=== PATIENT | female | born 1990 | race Caucasian/White ===

== ENCOUNTER 2017-12-13 07:47 | Inpatient (IN) ==
[2017-12-13] MEDS ORDERED: Citric Acid/Sodium Citrate Liq 30 ML UDC PO SCH (08:15)
[2017-12-13] MEDS ORDERED: Clindamycin 600 mg/NS Premix 600 MG/50 ML PIGGYBACK IV.SIG SCH (08:30)
[2017-12-13] MEDS ORDERED: GENTAMICIN IV.SIG SCH (08:30)
[2017-12-13] MEDS ORDERED: SODIUM CHLOR 0.9% IV.SIG SCH (08:30)
--- NOTE | 2017-12-13 08:37 | P.HPOB ---
History of Present Illness Service: Obstetrics Primary Care Physician: No Primary Care Physician Chief Complaint: leakage of fluid History of Present Illness: 27 yo [id number] with EDC 12/23/17 presents to L&D for c/o leakage of fluid, rules in for SROM. Has h/o x 2, is scheduled for repeat and tubal ligation with Dr. Hernandez next week. Pt's history is significant for hepatitis C positive, history of drug abuse, per note review from Dr. Hernandez clean since Apr 2016 then 9 months in [facility]. Also anemic, last Hgb 9.9. Weeks Gestation:: 38 Para: 2 : 3 Last menstrual period: 03/18/17 Total # of Miscarriage(s): 0 Total # of Abortions (Spontaneous & Elective): 0 - Inpatient Certification I certify that the inpatient services were ordered in accordance with Medicare regulations governing the order. This includes certification that hospital inpatient services are reasonable and necessary and in the case of services not specified as inpatient-only under 42 CFR 419.22(n), that they are appropriately provided as inpatient services in accordance to with the 2-midnight benchmark under 43 CFR 412.3(e) Estimated Total Length of Stay (Days): 4 Plans for Post Hospital Care: Home Review of Systems All other systems reviewed negative except as stated in HPI PMFSH - Medical History Medical History: Medical History (Last Updated 12/13/17 @ 08:26 by Concepcion Lund MD) Hepatitis C - Surgical History Surgical History: Surgical History (Last Updated 12/13/17 @ 08:26 by Concepcion Lund MD) History of delivery - Family History Family History: Family History (Last Updated 12/13/17 @ 08:27 by Concepcion Lund MD) Other No significant family history - Social History I have reviewed the patient's Social History: Yes - Tobacco History Second Hand Smoke Exposure: Yes Tobacco Use In Past 30 Days: Yes Smoking Status: Current every day smoker Tobacco Type: Cigarettes - Travel History Recent Travel in the [place] Within the Last 8 Weeks: No Recent Travel Out of the Country Within the Last 8 Weeks: No Medications and Allergies Active Medications: Active Medications Citric Acid/Sodium Citrate (Sodium Citrate/Citric Acid Liq) 30 ml PO HEAD WOOD GRINDER EVELYN Stop: 12/17/17 08:14 Gentamicin Sulfate 150 mg/ (Sodium Chloride) 103.75 mls @ 100 mls/hr IV.SIG ONCE ONE Stop: 12/13/17 09:32 Lactated Ringer's (Lr 1000 Ml Inj) 1,000 mls @ 2,000 mls/hr IV.SIG .Q30M ONE Stop: 12/13/17 08:41 Lactated Ringer's (Lr 1000 Ml Inj) 1,000 mls @ 150 mls/hr IV.CONT .Q6H40M EVELYN Clindamycin/Sodium Chloride (Cleocin 600 Mg/Ns Premix) 600 mg in 50 mls @ 100 mls/hr IV.SIG ONCE ONE Stop: 12/13/17 08:59 Allergies Allergy/AdvReac Type Severity Reaction Status Date / Time amoxicillin Allergy Mild NAUSEA Verified 12/13/17 08:13 penicillin G Allergy Mild NAUSEA Verified 12/13/17 08:13 Home Medications Medication Instructions Recorded Confirmed Type PNV #[id number] acid-dha 1 cap PO DAILY 12/13/17 12/13/17 History acetaminophen [Tylenol] 650 mg PO Q4H PRN 12/13/17 12/13/17 History Exam Vital signs: Vital Signs 12/13/17 08:09 12/13/17 08:10 12/13/17 08:15 Temperature 98.4 F Pulse Rate 91 H Respiratory Rate 18 Blood Pressure 150/102 H Intake & Output 12/12/17 12/13/17 12/13/17 18:59 06:59 18:59 Weight 98.883 kg Other: Weight On Admission 98.883 kg - Constitutional no acute distress - Routine HEENT Exam Head: Present: normocephalic, atraumatic Eye: Present: EOMI ENT: Present: mucous membranes moist - Routine Neck Exam Present: supple - Routine Chest/Breast/Axilla Exam Chest wall: Absent: tenderness, mass Axillae: Absent: lymphadenopathy, mass - Routine Respiratory Exam Absent: accessory muscle use, decreased breath sounds - Routine Cardiovascular Exam Present: RRR. Absent: bradycardia - Routine Abdominal Exam Absent: guarding Comments: gravid c/w dates - Routine Extremities Exam Absent: cyanosis, clubbing - Routine Skin Exam Present: intact. Absent: erythema - Routine Neurological Exam Present: alert, oriented X3 Caprini VTE Risk Assessment Caprini VTE Risk Assessment: No/Low Risk (score <= 1) VTE Pharmacological Exception Reason: Epidural catheter Caprini Risk Assessment Model: Point Value = 1 Point Value = 2 Point Value = 3 Point Value = 5 Age 41-60 Minor surgery BMI > 25 kg/m2 Swollen legs Varicose veins or History of unexplained or recurrent spontaneous Oral contraceptives or hormone replacement Sepsis (< 1 month) Serious lung disease, including pneumonia (< 1 month) Abnormal pulmonary function Acute myocardial infarction Congestive heart failure (< 1 month) History of inflammatory bowel disease Medical patient at bed rest Age 61-74 Arthroscopic surgery Major open surgery (> 45 min) Laparoscopic surgery (> 45 min) Malignancy Confined to bed (> 72 hours) Immobilizing plaster cast Central venous access Age >= 75 History of VTE Family history of VTE Factor V Leiden Prothrombin [id number] Lupus anticoagulant Anticardiolipin antibodies Elevated serum homocysteine Heparin-induced thrombocytopenia Other congenital or acquired thrombophilia Stroke (< 1 month) Elective arthroplasty Hip, pelvis, or leg fracture Acute spinal cord injury (< 1 month) Prophylaxis Regimen: Total Risk Factor Score Risk Level Prophylaxis Regimen 0-1 Low Early ambulation 2 Moderate Order ONE of the following: *Sequential Compression Device (SCD) *Heparin 5000 units SQ BID 3-4 Higher Order ONE of the following medications: *Heparin 5000 units SQ TID *Enoxaparin/Lovenox 40 mg SQ daily (WT < 150 kg, CrCl > 30 mL/min) *Enoxaparin/Lovenox 30 mg SQ daily (WT < 150 kg, CrCl > 10-29 mL/min) *Enoxaparin/Lovenox 30 mg SQ BID (WT < 150 kg, CrCl > 30 mL/min) AND/OR *Sequential Compression Device (SCD) 5 or more Highest Order ONE of the following medications: *Heparin 5000 units SQ TID (Preferred with Epidurals) *Enoxaparin/Lovenox 40 mg SQ daily (WT < 150 kg, CrCl > 30 mL/min) *Enoxaparin/Lovenox 30 mg SQ daily (WT < 150 kg, CrCl > 10-29 mL/min) *Enoxaparin/Lovenox 30 mg SQ BID (WT < 150 kg, CrCl > 30 mL/min) AND *Sequential Compression Device (SCD) Assessment and Plan - Diagnosis (1) Leakage, amniotic fluid Code(s): O42.90 - Premature rupture of membranes, unspecified as to length of time between rupture and onset of labor, unspecified weeks of gestation Status : Acute (2) History of delivery Code(s): Z98.891 - History of uterine scar from previous surgery Status: Chronic (3) Hepatitis C Code(s): B19.20 - Unspecified viral hepatitis C without hepatic coma Status: Chronic (4) History of drug abuse Code(s): Z87.898 - Personal history of other specified conditions Status: Chronic - Plan 27 yo with lomeli IUP at 38w4d admit for SROM/labor with history of x 2, undesired fertility 1) SROM/labor with h/o x 2, desired elective repeat and tubal: consents signed, r/b/a of procedure d/w pt, AQA 2) GBS neg 3) PCN allergy: ordered clindamycin and gentamicin preop for standard PPX 4) Hepatitis C positive: chronic, aware 5) h/o IV drug abuse, clean since Mar 2017 per review of records from Dr. Hernandez 6) status: female, Cat I tracing currently 7) undesired fertility: tubal consents signed in office, for tubal at time of Discharge Planning: routine 2-3d PP
[2017-12-13] MEDS ORDERED: fentaNYL Citrate Inj 100 MCG/2 ML Ampul ONE (08:46)
[2017-12-13] MEDS ORDERED: Lidocaine PF 1% Inj 5 ML Vial ONE (08:46)
[2017-12-13] MEDS ORDERED: Lidocaaine 1.5%/Epinephrine 1:200,000 PF Inj 5 ML Amp ONE (08:46)
[2017-12-13 08:47] LABS: Baso # (Auto) 0.1 th/mm3 (0.0-0.2); Baso % (Auto) 0.6 % (0.0-2.0); Eos # (Auto) 0.3 th/mm3 (0.0-0.4); Hematocrit 32.8 % (35.0-46.0); Hemoglobin 10.4 gm/dL (11.6-15.3); Lymph # (Auto) 2.5 th/mm3 (1.0-4.8); Mean Corpuscular HGB Conc 31.9 % (32.0-36.0); Mean Corpuscular Hemoglobin 23.8 pg (27.0-34.0); Mean Corpuscular Volume 74.6 fL (80.0-100.0); Mean Platelet Volume 9.6 fL (7.0-11.0); Mono # (Auto) 0.8 th/mm3 (0.0-0.9); Mono % (Auto) 5.6 % (0.0-8.0); Neut # (Auto) 10.1 th/mm3 (1.8-7.7); Neut % (Auto) 73.8 % (16.0-70.0); Platelet Count 258 th/mm3 (150-450); Red Cell Distribution Width 17.1 % (11.6-17.2); White Blood Count 13.7 th/mm3 (4.0-11.0)
[2017-12-13 09:09] LABS: Anion Gap 9 meq/L (5-15); Blood Urea Nitrogen 5 mg/dL (7-18); Carbon Dioxide 20.6 meq/L (21.0-32.0); Chloride 106 meq/L (98-107); Potassium 3.8 meq/L (3.5-5.1); Sodium 136 meq/L (136-145)
[2017-12-13 09:10] LABS: Alanine Aminotransferase 13 U/L (10-53); Albumin 2.9 g/dL (3.4-5.0); Aspartate Aminotransferase 14 U/L (15-37); Calcium 8.6 mg/dL (8.5-10.1); Glomerular Filtration Rate Greater Than 89 mL/min (>89); Glucose,Random 79 mg/dL (74-106)
[2017-12-13 09:13] LABS: Alkaline Phosphatase 188 U/L (45-117); Total Protein 7.3 g/dL (6.4-8.2)
[2017-12-13] MEDS ORDERED: Morphine Sulfate PF Inj 5 MG/10 ML Ampul ONE (09:30)
[2017-12-13 09:36] LABS: Platelet Estimate Normal (Normal); Platelet Morphology Clumped (Normal)
[2017-12-13 09:52] LABS: Bacteria,Urine Rare /hpf; Bilirubin,Urine Negative (Negative); Clarity,Urine Clear (Clear); Color,Urine Yellow (Yellw/Straw); Glucose,Urine (UA) Negative (Negative); Leukocyte Esterase,Urine Negative (Negative); Mucus,Urine Few /lpf (Occasional); Nitrite,Urine Negative (Negative); Specific Gravity,Urine 1.016 (1.002-1.035); Squamous Epithelial Cell,Urine 1 /hpf (0-5)
[2017-12-13 09:55] LABS: Amphetamine Screen,Urine Neg (Neg); Barbiturate Screen,Urine Neg (Neg); Cannabinoid Screen,Urine Pos (Neg); Cocaine Screen,Urine Neg (Neg)
[2017-12-13] MEDS ORDERED: ceFAZolin Inj 2,000 MG in Sodium Chlor 0.9% Inj 100 ML IV.SIG ONE (10:00)
[2017-12-13 10:09] LABS: Opiate Screen,Urine Neg (Neg)
--- NOTE | 2017-12-13 10:50 | P.OBDELI ---
Procedure Note Performed by: Concepcion Lund MD Procedure: Repeat Low Transverse Section, Other (and bilateral tubal ligation) Indication for Delivery: Desired elective repeat Previous Condition: Other (prior x 2, desired repeat and tubal ligation ) Informed Consent Obtained: For anesthesia, For procedure Confirmed Correct: Patient, Procedure, Site, Time-out taken Anesthesia: Spinal Medication Prior to Procedure: As documented in eMAR Monitoring During Procedure: Blood pressure monitoring, Pulse oximetry Urinary Catheter: Inserted using sterile technique, To dependent drainage Sterile Preparation: Duraprep, In usual fashion, With drapes to expose affected area Position: Supine with wedge to right side - Operative Features Skin Incision: Pfannenstiel Uterine Incision: Low transverse w/knife / scissors Membranes Ruptured: Previously, Amount of liquid (copious), Appearance of fluid (clear) Presentation: Compound (right hand), Vertex Status of : Viable, Cord blood, Nursery present Placenta Delivered: Intact Medications: Antibiotics (ancef 2g IV preop) Estimated blood loss (mL): 500 Procedure Tolerated: Well Maternal Condition: Stable Baby Condition: Stable - Infant : Female Infant Female A Infant Delivery Date: 12/13/17 Infant Delivery Time: 10:03 Weight: 3.345 kg score (1 min): 8 score (5 min): 9
[2017-12-13] MEDS ORDERED: Zolpidem Tartrate 5 MG Tablet PO PRN (10:51)
[2017-12-13] MEDS ORDERED: Oxytocin 30 Units/500ml Premix 30 UNITS/500 ML BAG IV.SIG ONE (10:51)
[2017-12-13] MEDS ORDERED: Acetaminophen 325 MG Tablet PO PRN (10:51)
[2017-12-13] MEDS ORDERED: Oxytocin 30 Units/500ml Premix 30 UNITS/500 ML BAG ONE (11:07)
--- NOTE | 2017-12-13 11:21 | MP ---
cc: Concepcion Lund MD DATE OF OPERATION: 12/13/2017 PREOPERATIVE DIAGNOSES: 1. Callahan intrauterine at 38 weeks and 4 days. 2. History of delivery x2. 3. Spontaneous rupture of membranes, active labor. 4. Desired elective repeat , desire for bilateral tubal ligation. POSTOPERATIVE DIAGNOSIS: 1. Callahan intrauterine at 38 weeks and 4 days. 2. History of delivery x2. 3. Spontaneous rupture of membranes, active labor. 4. Desired elective repeat , desire for bilateral tubal ligation. 5. Postoperative day number 0. INDICATIONS FOR PROCEDURE: Chana Webster is a 27-year-old 3, now para 3-0-0-3, who has been seen and evaluated in the office for care with history of delivery x2. She was scheduled for repeat at 39 weeks, but came into the hospital with a complaint of leakage of fluid and contractions. She was ruled in for rupture of membranes and was found to be in labor and desired a repeat so she was taken for surgery. PROCEDURE PERFORMED: Repeat low transverse delivery and bilateral tubal ligation. SURGEON: Concepcion Lund MD ANESTHESIA: Spinal. COMPLICATIONS: None. COUNTS: Sponge, lap, instrument and needle counts were correct x2 at the conclusion of the procedure. SPECIMEN: Right fallopian tube segment, left fallopian tube segment. PROPHYLAXIS: Ancef 2 grams IV was given preoperatively. SCDs were on and functioning throughout the entire case. INTRAOPERATIVE FINDINGS: Moderate degree of scar tissue within the fascial and rectus muscle layer, but minimal scar tissue within the pelvis. The infant was in vertex presentation with a compound right hand. Copious clear amniotic fluid. was vigorous upon delivery with Apgars of 8 and 9, weight of 7 pounds 6 ounces. Normal appearing bilateral fallopian tubes and ovaries prior to bilateral tubal interruption using Shad technique bilaterally. ESTIMATED BLOOD LOSS: 500 mL IV FLUID REPLACEMENT: 1500 mL URINE OUTPUT: Approximately 200 mL of clear urine drained in the Pearson bag at the end of the procedure. PROCEDURE IN DETAIL: After reviewing the informed consent, the patient was taken to the operating suite, where a timeout was performed to identify the patient, planned procedure, any known allergies to drugs or drug products. The patient was placed sitting up on the exam table and spinal anesthesia was administered without difficulty and found to be adequate. The patient was then laid in dorsal supine position with a bump under her right side and abdomen and perineum were prepped and draped in the normal sterile fashion. Pearson catheter was placed using sterile technique. In the area of the previous abdominal Pfannenstiel skin incisions, there was an area of a keloid that was excised with a scalpel. The incision was then brought down to the underlying layer of fascia with the Bovie and the fascia was incised in the midline. Incision was extended laterally with sharp dissection using Pablo scissors. The superior aspect of the fascial incision was elevated with Gabrielle clamps. The rectus muscles were dissected off sharply using Pablo scissors. Kochers then moved inferiorly to the fascial edge and again rectus muscles were dissected off sharply. The rectus muscles were somewhat adherent with loss of normal tissue planes. Using gentle dissection with hemostats eventually a plane was able to be found and peritoneum was identified and entered bluntly with surgeon's index finger. Incision was extended with good visualization of intra-abdominal contents. Bladder blade was placed. A bladder flap was not made. A scalpel was used to make a low transverse uterine incision. The incision was extended bluntly. Copious clear amniotic fluid was encountered. 's head was grasped and elevated out through the incision. A compound right hand was delivered with delivery of head. With gentle maneuvering, the rest of the readily delivered. Infant was immediately crying upon delivery and vigorous. Nose and mouth were suctioned with bulb suction. Delayed cord clamping of 45 seconds was performed. Cord was then doubly clamped and cut and the was handed off to the awaiting nursery staff. Cord blood sample was taken. Placenta was delivered spontaneously with gentle fundal massage and cord traction. The uterus was then exteriorized, cleared of all clots and debris with sterile moist lap sponges. The hysterotomy was repaired in a double-layer, first in a running locked layer, then in an imbricating fashion. The posterior cul-de-sac was irrigated. At this point, attention was turned to the tubal ligation portion of the procedure. The right fallopian tube was isolated and elevated with Hume clamp. An approximately 2 cm knuckle at the mid portion was doubly ligated with 0 catgut and the portion of the tube was then excised and sent off for pathologic evaluation. Attention was then turned to the left tube, which in the exact same fashion was successfully ligated and excised at the mid portion with excellent hemostasis noted. Uterus was then returned to the abdomen. Additional irrigation with suction was performed with excellent hemostasis noted. A layer of Interceed was placed over the repaired hysterotomy to act as an adhesion barrier. The peritoneum was then closed in a running fashion with 2-0 chromic. The fascia was closed in a running layer with #1 Vicryl. Subcutaneous tissue was irrigated copiously with warm sterile saline and closed in a series of interrupted sutures using 2-0 chromic due to the thickness of the subcutaneous tissue. The skin was then cleaned, dried, and closed in a subcuticular fashion with 3-0 Monocryl. Steri-Strips were placed as was a standard dressing. The procedure concluded at this point. The patient tolerated the procedure well without complication. DISPOSITION: The patient is resting in the Postanesthesia Care Unit with her to the nursery status. ESTIMATED LENGTH OF STAY: 2-3 postoperative days. MD MARLIN Burden/[email or web address] , 10:49 AM , 10:58 AM AIDA
[2017-12-13] MEDS ORDERED: Naloxone Inj 0.4 MG/ML Vial IV.PUSH PRN (12:46)
[2017-12-13] MEDS ORDERED: Oxytocin 30 Units/500ml Premix 30 UNITS/500 ML BAG IV.SIG PRN (15:52)
[2017-12-13] MEDS: Senna/Docusate Sodium 8.6/50 MG Tablet PO PRN (20:52)
[2017-12-14 05:26] LABS: Baso % (Auto) 0.3 % (0.0-2.0); Eos # (Auto) 0.1 th/mm3 (0.0-0.4); Hematocrit 25.9 % (35.0-46.0); Hemoglobin 8.6 gm/dL (11.6-15.3); Lymph % (Auto) 23.5 % (9.0-44.0); Mean Corpuscular HGB Conc 33.1 % (32.0-36.0); Mean Corpuscular Hemoglobin 24.4 pg (27.0-34.0); Mean Corpuscular Volume 73.9 fL (80.0-100.0); Mean Platelet Volume 8.9 fL (7.0-11.0); Mono # (Auto) 0.9 th/mm3 (0.0-0.9); Neut # (Auto) 8.7 th/mm3 (1.8-7.7); Neut % (Auto) 68.2 % (16.0-70.0); Platelet Count 200 th/mm3 (150-450); Red Blood Count 3.51 mil/mm3 (4.00-5.30); Red Cell Distribution Width 16.6 % (11.6-17.2); White Blood Count 12.7 th/mm3 (4.0-11.0)
--- NOTE | 2017-12-14 08:16 | P.PNOB ---
Subjective Post op day: 1 Interval history: s/p repeat LTCD and BTL, doing well, lochia lightening, bottle feeding Objective Vital Signs/I&O: Vital Signs 12/13/17 08:15 12/13/17 08:31 12/13/17 09:00 Temperature Pulse Rate 103 H 98 H Respiratory Rate 18 Blood Pressure 152/108 H 150/106 H 12/13/17 10:50 12/13/17 11:01 12/13/17 11:17 Temperature 97.6 F Pulse Rate 91 H 88 86 Respiratory Rate 18 17 Blood Pressure 134/74 130/72 144/71 H 12/13/17 11:18 12/13/17 11:31 12/13/17 11:42 Temperature Pulse Rate 79 85 Respiratory Rate 18 16 16 Blood Pressure 139/63 12/13/17 11:43 12/13/17 11:44 12/13/17 12:12 Temperature 98.1 F 98.5 F Pulse Rate 70 Respiratory Rate 20 Blood Pressure 133/61 164/92 H 12/13/17 13:15 12/13/17 17:30 12/13/17 20:00 Temperature 98.3 F 98.0 F Pulse Rate 86 99 H 73 Respiratory Rate 18 20 18 Blood Pressure 150/92 H 138/78 147/80 H 12/13/17 23:58 12/14/17 05:00 Temperature 98.2 F 98.3 F Pulse Rate 70 67 Respiratory Rate 18 18 Blood Pressure 142/80 H 122/79 Intake & Output 12/13/17 12/14/17 12/14/17 18:59 06:59 18:59 Weight 98.883 kg Other: Weight On Admission 98.883 kg Result Diagrams: 12/14/17 05:15 12/13/17 08:25 Objective Remarks: GENERAL: Well-nourished, well-developed patient. CARDIOVASCULAR: Regular rate and rhythm without murmurs, gallops, or rubs. RESPIRATORY: Breath sounds equal bilaterally. No accessory muscle use. ABDOMEN/GI: Abdomen soft, non-tender, bowel sounds present. Incision: bandage in place; Clean, dry and intact. Fundus: Firm, non-tender at umbilicus. GENITOURINARY: Light bleeding. EXTREMITIES: No cyanosis or edema, non-tender, without signs of DVT. Medications and IVs: Active Medications Acetaminophen (Tylenol) 650 mg PO Q6H PRN PRN Reason: PAIN SCALE 1 TO 2 Diphenhydramine HCl (Benadryl Inj) 25 mg IV.PUSH Q6H PRN PRN Reason: MILD TO MODERATE ITCHING Stop: 12/14/17 12:45 Diphenhydramine HCl (Benadryl) 50 mg PO Q6H PRN PRN Reason: MILD TO MODERATE ITCHING Stop: 12/14/17 12:45 Diphtheria/Pertussis/Tetanus Vacc (Boostrix Vaccine Inj) 0.5 ml IM .ONCE ONE Stop: 12/14/17 16:01 Lactated Ringer's (Lr 1000 Ml Inj) 1,000 mls @ 100 mls/hr IV.CONT .Q10H EVELYN Stop: 12/14/17 11:51 Last Admin: 12/13/17 22:24 Dose: 100 mls/hr Oxytocin (Pitocin 30 Units/Ns 500 Ml Premix) 30 units in 500 mls @ 100 mls/hr IV.SIG UNSCH PRN PRN Reason: Heavy bleeding Last Admin: 12/13/17 17:11 Dose: 100 mls/hr Ibuprofen (Motrin) 800 mg PO Q8H PRN PRN Reason: cramping Ketorolac Tromethamine (Toradol Inj) 30 mg IM Q6H PRN PRN Reason: SEE LABEL COMMENTS Stop: 12/18/17 10:50 Measles/Mumps/Rubella Vaccine Live (M-M-R Ii Vaccine Inj) 0.5 ml SQ .ONCE ONE Stop: 12/14/17 16:01 Miscellaneous Information [place] [place] 1 each OTHER UNSCH PRN PRN Reason: SEE LABEL COMMENTS Stop: 12/14/17 12:45 Miscellaneous Information ([facility] Nursing Information) 1 each OTHER UNSCH PRN PRN Reason: SEE LABEL COMMENTS Stop: 12/14/17 12:45 Naloxone HCl (Narcan Inj) 0.4 mg IV.PUSH UNSCH PRN PRN Reason: SEE LABEL COMMENTS Stop: 12/14/17 12:45 Ondansetron HCl (Zofran Inj) 4 mg IV.PUSH Q6H PRN PRN Reason: NAUSEA OR VOMITING Oxycodone/Acetaminophen (Percocet 5/325 Mg) 2 tab PO Q4H PRN PRN Reason: PAIN SCALE 6 TO 10 Last Admin: 12/14/17 01:42 Dose: 2 tab Oxycodone/Acetaminophen (Percocet 5/325 Mg) 1 tab PO Q4H PRN PRN Reason: PAIN SCALE 3 TO 5 Last Admin: 12/13/17 20:52 Dose: 1 tab Senna/Docusate Sodium (Rachel-Colace) 2 tab PO Q12H PRN PRN Reason: CONSTIPATION Last Admin: 12/13/17 20:52 Dose: 2 tab Simethicone (Mylicon Chew) 80 mg PO QID PRN PRN Reason: FLATULENCE Sodium Chloride (Ns Flush) 2 ml IV.FLUSH BID EVELYN Last Admin: 12/13/17 22:24 Dose: 2 ml Sodium Chloride (Ns Flush) 2 ml IV.FLUSH PRN PRN PRN Reason: FLUSH AFTER USING IV ACCESS Zolpidem Tartrate (Ambien) 5 mg PO HS PRN PRN Reason: INSOMNIA Assessment and Plan - Diagnosis (1) Status post repeat low transverse section Code(s): Z98.891 - History of uterine scar from previous surgery Status: Acute (2) Status post tubal ligation at time of delivery, current hosp Code(s): O80 - Encounter for full-term uncomplicated delivery; Z30.2 - Encounter for sterilization Status: Acute (3) Hepatitis C Code(s): B19.20 - Unspecified viral hepatitis C without hepatic coma Status: Chronic (4) Leakage, amniotic fluid Code(s): O42.90 - Premature rupture of membranes, unspecified as to length of time between rupture and onset of labor, unspecified weeks of gestation Status : Acute (5) History of delivery Code(s): Z98.891 - History of uterine scar from previous surgery Status: Chronic (6) History of drug abuse Code(s): Z87.898 - Personal history of other specified conditions Status: Chronic - Plan 27 yo POD#1 s/p repeat LTCD and BTL; presented in labor with desired elective repeat with tubal POD#1 - doing well, encouraged ambulation, shower, remove bandage; bottle feeding; known chronic hepatitis C diagnosis - aware; h/o IV drug abuse, seeing Dr. Hernandez for care, counseled pt at length re: use of narcotic pain medications for postoperative pain, pt voices understanding, states has good support from her mother; will plan close f/u in office due to high risk status Discharge Planning: routine, 3d PP
[2017-12-14] MEDS: Senna/Docusate Sodium 8.6/50 MG Tablet PO PRN ×2 (08:50→22:19)
[2017-12-14] MEDS: Simethicone 80 MG Chew Tablet PO PRN (13:54)
[2017-12-14] MEDS ORDERED: Diphtheria/Tetanus/Pertussis Vaccine Inj 0.5 ML Syringe IM ONE (16:00)
[2017-12-14] MEDS ORDERED: Measles/Mumps/Rubella Vaccine Inj 0.5 ML Vial SQ ONE (16:00)
--- NOTE | 2017-12-15 07:58 | P.PNOB ---
Subjective Post op day: 2 Interval history: Doing well after SROM at home and early section with BTL on Friday feeling well has not yet tried to nurse but wants to mom supportive and FOB is "co-parenting" pain controlled Objective Vital Signs/I&O: Vital Signs 12/14/17 08:00 12/14/17 19:15 12/15/17 07:00 Temperature 98.1 F 98.1 F 98.7 F Pulse Rate 82 88 74 Respiratory Rate Blood Pressure 133/76 136/85 140/82 Result Diagrams: 12/14/17 05:15 12/13/17 08:25 Objective Remarks: GENERAL: Well-nourished, well-developed patient. CARDIOVASCULAR: Regular rate and rhythm without murmurs, gallops, or rubs. RESPIRATORY: Breath sounds equal bilaterally. No accessory muscle use. ABDOMEN/GI: Abdomen soft, non-tender, bowel sounds present. Incision: Clean, dry and intact. Fundus: Firm, non-tender at umbilicus. GENITOURINARY: Light to moderate bleeding. EXTREMITIES: No cyanosis or edema, non-tender, without signs of DVT. Medications and IVs: Active Medications Acetaminophen (Tylenol) 650 mg PO Q6H PRN PRN Reason: PAIN SCALE 1 TO 2 Oxytocin (Pitocin 30 Units/Ns 500 Ml Premix) 30 units in 500 mls @ 100 mls/hr IV.SIG UNSCH PRN PRN Reason: Heavy bleeding Last Admin: 12/13/17 17:11 Dose: 100 mls/hr Ibuprofen (Motrin) 800 mg PO Q8H PRN PRN Reason: cramping Last Admin: 12/15/17 06:26 Dose: 800 mg Ketorolac Tromethamine (Toradol Inj) 30 mg IM Q6H PRN PRN Reason: SEE LABEL COMMENTS Stop: 12/18/17 10:50 Ondansetron HCl (Zofran Inj) 4 mg IV.PUSH Q6H PRN PRN Reason: NAUSEA OR VOMITING Oxycodone/Acetaminophen (Percocet 5/325 Mg) 2 tab PO Q4H PRN PRN Reason: PAIN SCALE 6 TO 10 Last Admin: 12/15/17 06:25 Dose: 2 tab Oxycodone/Acetaminophen (Percocet 5/325 Mg) 1 tab PO Q4H PRN PRN Reason: PAIN SCALE 3 TO 5 Last Admin: 12/13/17 20:52 Dose: 1 tab Senna/Docusate Sodium (Rachel-Colace) 2 tab PO Q12H PRN PRN Reason: CONSTIPATION Last Admin: 12/14/17 22:19 Dose: 2 tab Simethicone (Mylicon Chew) 80 mg PO QID PRN PRN Reason: FLATULENCE Last Admin: 12/14/17 13:54 Dose: 80 mg Sodium Chloride (Ns Flush) 2 ml IV.FLUSH BID EVELYN Last Admin: 12/14/17 22:20 Dose: Not Given Sodium Chloride (Ns Flush) 2 ml IV.FLUSH PRN PRN PRN Reason: FLUSH AFTER USING IV ACCESS Zolpidem Tartrate (Ambien) 5 mg PO HS PRN PRN Reason: INSOMNIA Assessment and Plan - Diagnosis (1) Status post repeat low transverse section Code(s): Z98.891 - History of uterine scar from previous surgery Status: Acute (2) Status post tubal ligation at time of delivery, current hosp Code(s): O80 - Encounter for full-term uncomplicated delivery; Z30.2 - Encounter for sterilization Status: Acute (3) Hepatitis C Code(s): B19.20 - Unspecified viral hepatitis C without hepatic coma Status: Chronic (4) Leakage, amniotic fluid Code(s): O42.90 - Premature rupture of membranes, unspecified as to length of time between rupture and onset of labor, unspecified weeks of gestation Status : Acute (5) History of delivery Code(s): Z98.891 - History of uterine scar from previous surgery Status: Chronic (6) History of drug abuse Code(s): Z87.898 - Personal history of other specified conditions Status: Chronic (7) Anemia Code(s): D64.9 - Anemia, unspecified Status: Acute - Plan 27 yo POD#1 s/p repeat LTCD and BTL; presented in labor with desired elective repeat with tubal POD#1 - doing well, encouraged ambulation, shower, remove bandage; bottle feeding; known chronic hepatitis C diagnosis - aware; h/o IV drug abuse, seeing Dr. Hernandez for care, counseled pt at length re: use of narcotic pain medications for postoperative pain, pt voices understanding, states has good support from her mother; will plan close f/u in office due to high risk status POD 2 12/15/17 Needs to see [employer] consultant needs oral iron supplementation discussed PPD and history of depression and [place] She will call if any triggers , cravings or decides that she needs zoloft can have percocet here but home with toradol plan for discharge in am RTO 1 week Discharge Planning: routine, 3d PP
[2017-12-15] MEDS ORDERED: Ferrous Sulfate 325 MG Tablet PO SCH (09:00)
[2017-12-15] MEDS ORDERED: Polyethylene Glycol 3350 17 GM Packet PO SCH (09:00)
[2017-12-15] MEDS: Simethicone 80 MG Chew Tablet PO PRN (10:46)
[2017-12-15 12:45] VITALS: BP 130/78; PULSE 92; RESP 16; TEMP 98.3
== END 2017-12-15 16:48 | disposition home or self-care (01) ==
LOC: HOBED 07:47 → H2E 08:00 → H1EA 11:58
PROVIDERS: ADMIT Obstetrics & Gynecology; ATTEND Obstetrics & Gynecology